=== PATIENT | female | born 1985 | race African-American/Black ===

== ENCOUNTER 2018-02-03 21:30 | Emergency (ER) | payer OTHER ==
[2018-02-03] MEDS: IBUPROFEN 600 MG TAB PO (22:20)
[2018-02-03] MEDS: DEXAMETHASONE 10 MG/ML 1 ML INJ IM (22:23)
== END 2018-02-03 22:59 | disposition home or self-care (01) ==
LOC: FTE 21:30
DX: H66.002 Acute suppurative otitis media without spontaneous rupture of ear drum, left ear (principal); R40.2412 Glasgow coma scale score 13-15, at arrival to emergency department
CPT/HCPCS: 96372; 99284-25; J1100

== ENCOUNTER 2018-02-07 12:11 | Emergency (ER) | payer OTHER | END 2018-02-07 12:45 | disposition home or self-care (01) | LOC: E/R 12:11 | DX: H60.92 Unspecified otitis externa, left ear (principal) | CPT/HCPCS: 99283; Z7502 ==

== ENCOUNTER 2018-02-21 22:15 | Emergency (ER) | payer OTHER ==
[2018-02-22 02:01] LABS: ADD UMIC NO; UR ASCORBIC ACID 40 mg/dL (NEGATIVE); UR BILIRUBIN (Dip) NEGATIVE (NEGATIVE); UR BLOOD (Dip) NEGATIVE (NEGATIVE); UR CLARITY CLEAR (CLEAR); UR COLOR YELLOW (YELLOW); UR GLUCOSE (Dip) NEGATIVE (NEGATIVE); UR KETONES (Dip) NEGATIVE (NEGATIVE); UR LEUKOCYTE ESTERASE (Dip) NEGATIVE Leu/ul (NEGATIVE); UR NITRITE (Dip) NEGATIVE (NEGATIVE); UR SPECIFIC GRAVITY (Dip) 1.024 (1.003-1.030); UR TOTAL PROTEIN (Dip) NEGATIVE (NEGATIVE); UR UROBILINOGEN (Dip) NEGATIVE (NEGATIVE)
== END 2018-02-22 02:37 | disposition home or self-care (01) ==
LOC: FTE 22:15
DX: N89.8 Other specified noninflammatory disorders of vagina (principal); Z91.040 Latex allergy status
CPT/HCPCS: 81003; 87210; 87591; 99284

== ENCOUNTER 2018-04-04 09:23 | Emergency (ER) | payer OTHER ==
[2018-04-04] MEDS: HYDROCODONE/APAP (5/325) TAB PO (09:58)
== END 2018-04-04 10:30 | disposition home or self-care (01) ==
LOC: FTE 09:23
DX: R51 Headache (principal)
CPT/HCPCS: 99283; Z7502

== ENCOUNTER 2018-07-23 20:34 | Emergency (ER) | payer OTHER ==
[2018-07-23] MEDS: ACYCLOVIR 800 MG TAB PO (22:33)
[2018-07-23] MEDS: NAPROXEN 500 MG TAB PO (22:33)
[2018-07-23 22:39] LABS: ADD UMIC YES; UR ASCORBIC ACID 40 mg/dL (NEGATIVE); UR BACTERIA FEW /HPF (NONE SEEN); UR BILIRUBIN (Dip) NEGATIVE (NEGATIVE); UR BLOOD (Dip) NEGATIVE (NEGATIVE); UR CLARITY SLIGHTLY CLOUDY (CLEAR); UR COLOR YELLOW (YELLOW); UR GLUCOSE (Dip) NEGATIVE (NEGATIVE); UR KETONES (Dip) NEGATIVE (NEGATIVE); UR LEUKOCYTE ESTERASE (Dip) TRACE Leu/ul (NEGATIVE); UR NITRITE (Dip) NEGATIVE (NEGATIVE); UR RBC 2 /HPF (0-5); UR SPECIFIC GRAVITY (Dip) 1.026 (1.003-1.030); UR SQUAMOUS EPITHELIAL CELL MODERATE /HPF (FEW); UR TOTAL PROTEIN (Dip) NEGATIVE (NEGATIVE); UR UROBILINOGEN (Dip) NEGATIVE (NEGATIVE); UR WBC 4 /HPF (0-5)
[2018-07-26 16:46] LABS: HSV CULTURE RESULT ISOLATED; HSV CULTURE SOURCE VAGINAL
== END 2018-07-24 02:25 | disposition home or self-care (01) ==
LOC: FTE 07-24 02:25
DX: N94.89 Other specified conditions associated with female genital organs and menstrual cycle (principal)
CPT/HCPCS: 81001; 81025; 84703; 86692; 87081; 87210; 87250; 87252; 87591; 99284

== ENCOUNTER 2019-04-14 18:44 | Emergency (ER) | payer OTHER | END 2019-04-14 19:00 | disposition home or self-care (01) | LOC: E/R 19:00 | DX: S60.861A Insect bite (nonvenomous) of right wrist, initial encounter (principal); W57.XXXA Bitten or stung by nonvenomous insect and other nonvenomous arthropods, initial encounter; Y92.9 Unspecified place or not applicable; Z91.040 Latex allergy status | CPT/HCPCS: 99283; Z7502 ==